=== PATIENT | female | born 1970 | race Caucasian/White ===

== ENCOUNTER 2021-10-01 12:25 | Day surgery (SDC) | payer OTHER ==
[2021-09-26 10:55] VITALS: BMI 21.9
[2021-10-01] MEDS ORDERED: levoFLOXacin 500 MG IVPB 1,500 MG/300 ML BAG IVPB ONE (13:48)
[2021-10-01] MEDS ORDERED: MIDAZOLAM HCL 2 MG/2 ML SINGLE DOSE VIAL ONE (14:19)
[2021-10-01] MEDS ORDERED: BUPIVACAINE HCL/PF 0.25% (2.5MG/ML) 10 ML VIAL ONE ×2 (15:20→17:13)
[2021-10-01] MEDS ORDERED: BUPIVACAINE HCL/PF 0.25% (2.5MG/ML) 10 ML VIAL IJ ONE (17:08)
[2021-10-01] MEDS ORDERED: NEOSTIGMINE METHYLSULFATE 0.5 MG/ML - 10 ML MDV ONE (17:56)
[2021-10-01] MEDS ORDERED: GLYCOPYRROLATE 0.2 MG/1 ML VIAL ONE (17:57)
[2021-10-01] MEDS ORDERED: ONDANSETRON 4 MG/2 ML VIAL IVPUSH PRN (18:19)
[2021-10-01] MEDS ORDERED: oxyCODONE HCL 5 MG TABLET PO PRN ×3 (18:19→18:22)
[2021-10-01] MEDS ORDERED: ONDANSETRON 4 MG/2 ML VIAL IVPB PRN (18:22)
[2021-10-01] MEDS ORDERED: LACTATED RINGERS SOLUTION 1,000 ML IV SCH ×2 (18:30)
[2021-10-01] MEDS ORDERED: oxyCODONE HCL 5 MG TABLET ONE (19:02)
[2021-10-01 19:17] VITALS: TEMP 97.3
[2021-10-01 20:25] VITALS: BP 114/72; PULSE 80
== END 2021-10-01 21:08 | disposition home or self-care (01) ==
LOC: JASU-SURG 12:25
PROVIDERS: ATTEND Plastic Surgery
PROC: 0HPT0JZ Removal of Synthetic Substitute from Right Breast, Open Approach (ICD-10-PCS; 2021-10-01)
PROC: 0HPU0JZ Removal of Synthetic Substitute from Left Breast, Open Approach (ICD-10-PCS; principal; 2021-10-01 13:30)
DX: T85.44XA Capsular contracture of breast implant, initial encounter (principal); T85.79XA Infection and inflammatory reaction due to other internal prosthetic devices, implants and grafts, initial encounter
CPT/HCPCS: 81025; 87070; 87102; 87116; 87205; 87206; 87210; 88304-TC; 88341-TC; 88342-TC; 94760